=== PATIENT | female | born 1975 | race Caucasian/White ===

== ENCOUNTER → 2019-03-24 | Day surgery (SDC) | payer BC ==
[~2019-03-24] MED LIST: ALBUTEROL SULFATE 2.5 MG/3 ML NEBU. NEB PRN; ATROPINE 0.5 MG/5 ML DISP.SYRIN. IV PRN; DICL75TA PO; IV RINGERS SOLUTION,LACTATED 1,000 ML IV SCH; LIDOCAINE 2% PF Vial for OR 5 ML VIAL. ONE; ONDANSETRON PF 4 MG/2 ML VIAL. IV PRN; PANT40TA5 PO; PROPOFOL 10,000 MCG/ML (20ML) VIAL IV ONE; PROPOFOL 40 ML IV ONE
[2019-03-24 15:41] VITALS: BP 132/91
== END | disposition home or self-care (01) ==
LOC: SURG 14:11
PROVIDERS: ATTEND Internal Medicine Gastroenterology
DX: K22.2 Esophageal obstruction (principal); K44.9 Diaphragmatic hernia without obstruction or gangrene; K31.89 Other diseases of stomach and duodenum; K22.10 Ulcer of esophagus without bleeding; Z90.710 Acquired absence of both cervix and uterus; Z98.890 Other specified postprocedural states
CPT/HCPCS: 43450; J2704; J2001

== ENCOUNTER → 2019-11-30 | Outpatient (CLI) | payer BC ==
[2019-03-24 15:41] VITALS: BP 132/91
[~2019-11-30] MED LIST changes: -ALBUTEROL SULFATE 2.5 MG/3 ML NEBU. NEB PRN; -ATROPINE 0.5 MG/5 ML DISP.SYRIN. IV PRN; -IV RINGERS SOLUTION,LACTATED 1,000 ML IV SCH; -LIDOCAINE 2% PF Vial for OR 5 ML VIAL. ONE; -ONDANSETRON PF 4 MG/2 ML VIAL. IV PRN; -PROPOFOL 10,000 MCG/ML (20ML) VIAL IV ONE; -PROPOFOL 40 ML IV ONE
--- NOTE | 2019-12-01 18:16 | RAD ---
BILATERAL SCREENING MAMMOGRAM, 3-D History: Routine screening. Comparison: None. This exam is the baseline. Technique: MLO and CC digital tomosynthesis (3D) images obtained. Radiologist reviewed these images on dedicated workstation. Findings: Breast Tissue Density B : There are scattered areas of fibroglandular density. No suspicious calcifications or distortion.. There is a small focal asymmetry measuring 0.6 cm in diameter at the lower outer right breast 2 cm from the nipple. It is best seen on 3-D images. IMPRESSION: Ultrasound imaging of the right lower-outer breast is recommended. Spot compression imaging may be needed. BI-RADS Category 0: Incomplete: Need additional imaging evaluation. The images were reviewed with computer-aided detection. Patient information is entered into reminder system with a target due date for the next screening mammogram. Mammography is the most sensitive method for finding small breast cancers, but it does not detect them all and is not a substitute for careful clinical examination. A negative mammogram does not negate a clinically suspicious finding and should not result in delay in biopsying a clinically suspicious abnormality. "Our facility is accredited by the [employer] Mammography Program." Electronically signed by: Naresh Berg MD (12/01/2019 6:13 PM) [id number]
== END | disposition home or self-care (01) ==
LOC: MAMMO 08:56
PROVIDERS: ATTEND Family Medicine
DX: Z12.31 Encounter for screening mammogram for malignant neoplasm of breast (principal)
CPT/HCPCS: 77063; 77067

== ENCOUNTER → 2019-12-07 | Outpatient (CLI) | payer BC ==
[2019-03-24 15:41] VITALS: BP 132/91
--- NOTE | 2019-12-07 17:07 | RAD ---
Right breast diagnostic ultrasound. INDICATION: Screening recall for nodularity in the lower-outer right breast on new baseline mammogram. COMPARISON: Bilateral 2-D and 3-D mammogram of 11/30/2019. TECHNIQUE: Grayscale and color Doppler imaging of the lower-outer quadrant right breast was performed. FINDINGS: Multiple oval, parallel orientation circumscribed predominantly hypoechoic with low-level internal echoes masses in the right breast compatible with complicated cysts are present, including a 5 mm cyst at the right 9:00 position 3 cm from the nipple and a 6 mm cyst at the 8:00 position 2 cm from the nipple. No suspicious sonographic findings. IMPRESSION: Benign findings on targeted ultrasound of the lower-outer quadrant right breast. No evidence of malignancy. Recommend return to routine screening next due in one year. BI-RADS Category 2 Benign findings
== END | disposition home or self-care (01) ==
LOC: US 13:52
PROVIDERS: ATTEND Family Medicine
DX: N60.01 Solitary cyst of right breast (principal); N63.11 Unspecified lump in the right breast, upper outer quadrant
CPT/HCPCS: 76641